=== PATIENT | female | born 1945 | race African-American/Black ===

== ENCOUNTER → 2017-04-18 | Outpatient (CLI) | payer MEDICARE, OTHER ==
[2017-04-18 11:34] LABS: ABSOLUTE EOSINOPHILS # (AUTO) 0.1 10^3/uL (0.0-0.6); ABSOLUTE LYMPHOCYTES (AUTO) 1.3 10^3/uL (0.5-4.7); ABSOLUTE MONOCYTES (AUTO) 0.3 10^3/uL (0.1-1.4); ABSOLUTE NEUT (AUTO) 2.9 10^3/uL (1.7-8.2); BASOPHILS % (AUTO) 0.7 % (0-2); EOSINOPHILS % (AUTO) 1.2 % (0-6); HEMATOCRIT 34.7 % (36.0-47.0); HEMOGLOBIN 11.7 g/dL (12.0-15.5); HGB HCT DIFFERENCE 0.4; LYMPHOCYTES % (AUTO) 28.4 % (13-45); MEAN CORPUSCULAR HEMOGLOBIN 29.8 pg (27.0-33.4); MEAN CORPUSCULAR HGB CONC 33.6 g/dL (32.0-36.0); MEAN CORPUSCULAR VOLUME 89 fl (80-97); RED BLOOD COUNT 3.92 10^6/uL (3.72-5.28); RED CELL DISTRIBUTION WIDTH 14.8 % (11.5-14.0); SEGMENTED NEUTROPHILS % (AUTO) 62.7 % (42-78); WHITE BLOOD COUNT 4.7 10^3/uL (4.0-10.5)
[2017-04-18 12:00] LABS: ALANINE AMINOTRANSFERASE 33 U/L (9-52); ALBUMIN 3.6 g/dL (3.5-5.0); ALKALINE PHOSPHATASE 97 U/L (38-126); ANION GAP 11 (5-19); ASPARTATE AMINO TRANSFERASE 29 U/L (14-36); BILIRUBIN,DIRECT 0.2 mg/dL (0.0-0.4); BILIRUBIN,TOTAL 0.5 mg/dL (0.2-1.3); BLOOD UREA NITROGEN 22 mg/dL (7-20); CALCIUM 8.4 mg/dL (8.4-10.2); CARBON DIOXIDE 31 mmol/L (22-30); CHLORIDE 103 mmol/L (98-107); CREATININE RESULT 0.74 mg/dL (0.52-1.25); GLUCOSE 79 mg/dL (75-110); POTASSIUM 3.6 mmol/L (3.6-5.0); SODIUM 145.3 mmol/L (137-145); TOTAL PROTEIN 6.3 g/dL (6.3-8.2)
[2017-04-19 10:20] LABS: HSV-II IGG AB >23.60 index (0.00-0.90); VARICELLA ZOSTER IGG AB 1613 index (Immune >165)
[2017-04-19 14:57] LABS: ANGIOTENSIN-CONVERTING ENZYME 35 U/L (14-82)
[2017-04-20 08:18] LABS: HSV I AND II IGM AB <0.91 Ratio (0.00-0.90)
[2017-04-21 18:36] LABS: QUANTIFERON TB ANTIGEN VALUE 0.16 IU/mL (.); QUANTIFERON TB NIL VALUE 0.22 IU/mL (.)
== END ==
LOC: OD 09:59
PROVIDERS: ATTEND Ophthalmology
DX: H35.352 Cystoid macular degeneration, left eye (principal)
CPT/HCPCS: 36415; 80048; 80076; 82164; 85025; 86038; 86430; 86480; 86592; 86695; 86696; 86787

== ENCOUNTER → 2018-01-28 | Outpatient (CLI) | payer MEDICARE, OTHER ==
[2018-01-28 13:04] LABS: ABSOLUTE LYMPHOCYTES (AUTO) 1.2 10^3/uL (0.5-4.7); ABSOLUTE MONOCYTES (AUTO) 0.4 10^3/uL (0.1-1.4); ABSOLUTE NEUT (AUTO) 3.2 10^3/uL (1.7-8.2); BASOPHILS % (AUTO) 0.8 % (0-2); EOSINOPHILS % (AUTO) 0.9 % (0-6); HEMATOCRIT 35.7 % (36.0-47.0); LYMPHOCYTES % (AUTO) 24.3 % (13-45); MEAN CORPUSCULAR HEMOGLOBIN 30.5 pg (27.0-33.4); MEAN CORPUSCULAR HGB CONC 33.7 g/dL (32.0-36.0); MEAN CORPUSCULAR VOLUME 91 fl (80-97); MONOCYTES % (AUTO) 7.8 % (3-13); PLATELET COUNT 183 10^3/uL (150-450); RED BLOOD COUNT 3.94 10^6/uL (3.72-5.28); RED CELL DISTRIBUTION WIDTH 14.8 % (11.5-14.0); SEGMENTED NEUTROPHILS % (AUTO) 66.2 % (42-78); TOTAL CELLS COUNTED % (AUTO) 100 %; WHITE BLOOD COUNT 4.9 10^3/uL (4.0-10.5)
[2018-01-28 13:37] LABS: ALANINE AMINOTRANSFERASE 21 U/L (9-52); ALBUMIN 3.8 g/dL (3.5-5.0); ALKALINE PHOSPHATASE 89 U/L (38-126); ASPARTATE AMINO TRANSFERASE 24 U/L (14-36); BILIRUBIN,DIRECT 0.3 mg/dL (0.0-0.4); BILIRUBIN,TOTAL 0.5 mg/dL (0.2-1.3)
== END ==
LOC: OD 12:15
PROVIDERS: ATTEND Ophthalmology
DX: H30.93 Unspecified chorioretinal inflammation, bilateral (principal)
CPT/HCPCS: 36415; 80076; 85025

== ENCOUNTER → 2018-04-16 | Outpatient (CLI) | payer MEDICARE, OTHER ==
[2018-04-16 15:40] LABS: ABSOLUTE EOSINOPHILS # (AUTO) 0.1 10^3/uL (0.0-0.6); ABSOLUTE LYMPHOCYTES (AUTO) 1.4 10^3/uL (0.5-4.7); ABSOLUTE MONOCYTES (AUTO) 0.3 10^3/uL (0.1-1.4); ABSOLUTE NEUT (AUTO) 2.4 10^3/uL (1.7-8.2); BASOPHILS % (AUTO) 0.6 % (0-2); EOSINOPHILS % (AUTO) 1.8 % (0-6); HEMATOCRIT 33.1 % (36.0-47.0); HEMOGLOBIN 11.2 g/dL (12.0-15.5); MEAN CORPUSCULAR HGB CONC 33.7 g/dL (32.0-36.0); MEAN CORPUSCULAR VOLUME 92 fl (80-97); MONOCYTES % (AUTO) 7.9 % (3-13); PLATELET COUNT 169 10^3/uL (150-450); RED CELL DISTRIBUTION WIDTH 15.5 % (11.5-14.0); SEGMENTED NEUTROPHILS % (AUTO) 56.7 % (42-78); TOTAL CELLS COUNTED % (AUTO) 100 %; WHITE BLOOD COUNT 4.2 10^3/uL (4.0-10.5)
[2018-04-16 16:07] LABS: ALANINE AMINOTRANSFERASE 14 U/L (9-52); ALBUMIN 3.8 g/dL (3.5-5.0); ALKALINE PHOSPHATASE 100 U/L (38-126); ASPARTATE AMINO TRANSFERASE 22 U/L (14-36); BILIRUBIN,DIRECT 0.2 mg/dL (0.0-0.4); BILIRUBIN,TOTAL 0.3 mg/dL (0.2-1.3); TOTAL PROTEIN 6.5 g/dL (6.3-8.2)
== END ==
LOC: OD 14:36
PROVIDERS: ATTEND Ophthalmology
DX: H30.93 Unspecified chorioretinal inflammation, bilateral (principal); H35.353 Cystoid macular degeneration, bilateral; H35.033 Hypertensive retinopathy, bilateral
CPT/HCPCS: 36415; 80076; 85025

== ENCOUNTER → 2018-05-10 | Outpatient (CLI) | payer MEDICARE, OTHER ==
[2018-05-10 14:27] LABS: ABSOLUTE EOSINOPHILS # (AUTO) 0.1 10^3/uL (0.0-0.6); ABSOLUTE LYMPHOCYTES (AUTO) 1.4 10^3/uL (0.5-4.7); ABSOLUTE MONOCYTES (AUTO) 0.3 10^3/uL (0.1-1.4); ABSOLUTE NEUT (AUTO) 2.7 10^3/uL (1.7-8.2); BASOPHILS % (AUTO) 0.6 % (0-2); EOSINOPHILS % (AUTO) 1.2 % (0-6); HEMATOCRIT 33.3 % (36.0-47.0); HEMOGLOBIN 11.5 g/dL (12.0-15.5); LYMPHOCYTES % (AUTO) 31.5 % (13-45); MEAN CORPUSCULAR HEMOGLOBIN 31.5 pg (27.0-33.4); MEAN CORPUSCULAR HGB CONC 34.5 g/dL (32.0-36.0); MEAN CORPUSCULAR VOLUME 91 fl (80-97); PLATELET COUNT 181 10^3/uL (150-450); RED BLOOD COUNT 3.65 10^6/uL (3.72-5.28); RED CELL DISTRIBUTION WIDTH 15.9 % (11.5-14.0); SEGMENTED NEUTROPHILS % (AUTO) 60.7 % (42-78); TOTAL CELLS COUNTED % (AUTO) 100 %; WHITE BLOOD COUNT 4.5 10^3/uL (4.0-10.5)
[2018-05-10 14:45] LABS: ALANINE AMINOTRANSFERASE 21 U/L (9-52); ALBUMIN 3.7 g/dL (3.5-5.0); ALKALINE PHOSPHATASE 96 U/L (38-126); ASPARTATE AMINO TRANSFERASE 23 U/L (14-36); BILIRUBIN,DIRECT 0.3 mg/dL (0.0-0.4); BILIRUBIN,TOTAL 0.6 mg/dL (0.2-1.3); TOTAL PROTEIN 6.6 g/dL (6.3-8.2)
== END ==
LOC: OD 13:37
PROVIDERS: ATTEND Ophthalmology
DX: H30.93 Unspecified chorioretinal inflammation, bilateral (principal); H35.353 Cystoid macular degeneration, bilateral; H18.232 Secondary corneal edema, left eye; H35.033 Hypertensive retinopathy, bilateral; H04.123 Dry eye syndrome of bilateral lacrimal glands; I10 Essential (primary) hypertension
CPT/HCPCS: 36415; 80076; 85025

== ENCOUNTER 2018-05-21 19:37 | Observation (INO) | payer MEDICARE, OTHER ==
--- NOTE | 2018-05-21 19:57 | ER Document Report ---
ED Medical Screen (RME) - General Chief Complaint: Cough Stated Complaint: COUGH/DIZZINESS Time Seen by Provider: 05/21/18 19:51 Mode of Arrival: Ambulatory Information source: Patient Notes: 73-year-old female with coronary artery disease, hypertension, asthma presents from her primary care physician's office after she reports the provider was concerned with the EKG that was obtained there. Patient went because of a persistent cough and dizziness. She does state that she has had constant chest pressure for a few days. I have greeted and performed a rapid initial assessment of this patient. A comprehensive ED assessment and evaluation of the patient, analysis of test results and completion of medical decision making process we will be contacted by additional ED providers. PHYSICAL EXAMINATION: Vital signs reviewed-afebrile hypotension GENERAL: Persistent cough, ill-appearing but nontoxic LUNGS: No respiratory distress Musculoskeletal: Normal range of motion NEUROLOGICAL: Normal speech, normal gait. PSYCH: Normal mood, normal affect. SKIN: Warm, Dry, normal turgor, no rashes or lesions noted. TRAVEL OUTSIDE OF THE [place] IN LAST 30 DAYS: No - HPI Onset: Other Onset/Duration: Intermittent Quality of pain: Pressure Severity: Mild Associated Symptoms: Chest pain, Cough (productive), Fever. denies: Shortness of breath Exacerbated by: Denies Relieved by: Denies Similar symptoms previously: Yes Recently seen / treated by doctor: Yes - Today was sent here by PCP - Related Data Smoking: Non-smoker Frequency of alcohol use: None Drug Abuse: None Allergies/Adverse Reactions: ampicillin [Ampicillin] Allergy (Severe, Verified 09/07/11 12:56) Facial swelling muscle relaxer Adverse Reaction (Uncoded 04/07/15 20:44) Past Medical History - Past Medical History Cardiac Medical History: Reports: Hx Coronary Artery Disease, Hx Hypertension - LISINOPRIL AND LOPRESSOR Denies: Hx Heart Attack - STENTS [id number], [place] Pulmonary Medical History: Reports: Hx Asthma - OCCUPATIONAL ASTHMA, INDUCED BY CHEMICALS PER PT Neurological Medical History: Denies: Hx Cerebrovascular Accident, Hx Seizures Endocrine Medical History: Denies: Hx Diabetes Mellitus Type 1, Hx Diabetes Mellitus Type 2 GI Medical History: Denies: Hx Hepatitis, Hx Hiatal Hernia, Hx Ulcer Infectious Medical History: Denies: Hx Hepatitis Past Surgical History: Reports: Hx Cardiac Surgery - stent x 2, thyroidectomy, Hx Thyroid Surgery. Denies: Hx Hysterectomy, Hx Mastectomy, Hx Open Heart Surgery, Hx Pacemaker - Immunizations Hx Diphtheria, Pertussis, Tetanus Vaccination: Yes Doctor's Discharge - Discharge Referrals: FAZAL BROWN MD [Primary Care Provider] - Follow up as needed
[2018-05-21] MEDS ORDERED: ASPIRIN 81 MG TABLET, CHEWABLE PO ONE (19:58)
--- NOTE | 2018-05-21 20:28 | RADIOLOGY REPORT (SQ) ---
EXAM DESCRIPTION: CHEST 2 VIEWS COMPLETED DATE/TIME: 05/21/2018 8:16 pm REASON FOR STUDY: Cough, chest pain COMPARISON: None. EXAM PARAMETERS: NUMBER OF VIEWS: two views TECHNIQUE: Digital Frontal and Lateral radiographic views of the chest acquired. RADIATION DOSE: NA LIMITATIONS: none FINDINGS: LUNGS AND PLEURA: No opacities, masses or pneumothorax. No pleural effusion. MEDIASTINUM AND HILAR STRUCTURES: No masses or contour abnormalities. HEART AND VASCULAR STRUCTURES: Heart normal size. No evidence for failure. BONES: No acute findings. HARDWARE: None in the chest. OTHER: No other significant finding. IMPRESSION: NO ACUTE RADIOGRAPHIC FINDING IN THE CHEST. TECHNICAL DOCUMENTATION: JOB ID: [id number] [employer]- All Rights Reserved Reading location - IP/workstation name: [email or web address]
[2018-05-21 20:37] LABS: ABSOLUTE LYMPHOCYTES (AUTO) 1.5 10^3/uL (0.5-4.7); ABSOLUTE MONOCYTES (AUTO) 0.4 10^3/uL (0.1-1.4); ABSOLUTE NEUT (AUTO) 1.5 10^3/uL (1.7-8.2); BASOPHILS % (AUTO) 0.6 % (0-2); EOSINOPHILS % (AUTO) 0.2 % (0-6); HEMATOCRIT 35.6 % (36.0-47.0); LYMPHOCYTES % (AUTO) 44.8 % (13-45); MEAN CORPUSCULAR HGB CONC 33.9 g/dL (32.0-36.0); MEAN CORPUSCULAR VOLUME 92 fl (80-97); MONOCYTES % (AUTO) 11.1 % (3-13); PLATELET COUNT 144 10^3/uL (150-450); RED BLOOD COUNT 3.89 10^6/uL (3.72-5.28); RED CELL DISTRIBUTION WIDTH 15.8 % (11.5-14.0); SEGMENTED NEUTROPHILS % (AUTO) 43.3 % (42-78); TOTAL CELLS COUNTED % (AUTO) 100 %; WHITE BLOOD COUNT 3.4 10^3/uL (4.0-10.5)
[2018-05-21 20:55] LABS: ALANINE AMINOTRANSFERASE 27 U/L (9-52); ALBUMIN 3.8 g/dL (3.5-5.0); ALKALINE PHOSPHATASE 91 U/L (38-126); ANION GAP 9 (5-19); ASPARTATE AMINO TRANSFERASE 45 U/L (14-36); BILIRUBIN,DIRECT 0.3 mg/dL (0.0-0.4); BILIRUBIN,TOTAL 0.4 mg/dL (0.2-1.3); BLOOD UREA NITROGEN 17 mg/dL (7-20); CALCIUM 8.7 mg/dL (8.4-10.2); CARBON DIOXIDE 31 mmol/L (22-30); CHLORIDE 99 mmol/L (98-107); CREATINE KINASE 240 U/L (30-135); GLUCOSE 96 mg/dL (75-110); POTASSIUM 3.1 mmol/L (3.6-5.0); SODIUM 138.6 mmol/L (137-145)
[2018-05-21] MEDS ORDERED: POTASSIUM CHLORIDE 10 MEQ CAPSULE.ER PO ONE (22:21)
[2018-05-21] MEDS ORDERED: NITROGLYCERIN 2% OINTMENT 1 GM PACKET TP ONE (22:23)
--- NOTE | 2018-05-21 22:23 | ER Document Report ---
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 TRAVEL OUTSIDE OF THE [place] IN LAST 30 DAYS: No - HPI Onset: Last week Onset/Duration: Gradual Quality of pain: No pain Severity: None Pain Level: Denies Associated symptoms: Nonproductive cough, Shortness of breath Exacerbated by: Movement Relieved by: Denies Similar symptoms previously: No Recently seen / treated by doctor: No - Related Data Allergies/Adverse Reactions: ampicillin [Ampicillin] Allergy (Severe, Verified 09/07/11 12:56) Facial swelling muscle relaxer Adverse Reaction (Uncoded 04/07/15 20:44) Past Medical History - General Information source: Patient - Social History Smoking Status: Never Smoker Cigarette use (# per day): No Chew tobacco use (# tins/day): No Frequency of alcohol use: None Drug Abuse: None Lives with: Family Family History: Reviewed & Not Pertinent Patient has suicidal ideation: No Patient has homicidal ideation: No - Past Medical History Cardiac Medical History: Reports: Hx Coronary Artery Disease, Hx Hypertension - LISINOPRIL AND LOPRESSOR Denies: Hx Heart Attack - STENTS [id number], [place] Pulmonary Medical History: Reports: Hx Asthma - OCCUPATIONAL ASTHMA, INDUCED BY CHEMICALS PER PT Neurological Medical History: Denies: Hx Cerebrovascular Accident, Hx Seizures Endocrine Medical History: Denies: Hx Diabetes Mellitus Type 1, Hx Diabetes Mellitus Type 2 Renal/ Medical History: Denies: Hx Peritoneal Dialysis GI Medical History: Denies: Hx Hepatitis, Hx Hiatal Hernia, Hx Ulcer Musculoskeletal Medical History: Reports None Infectious Medical History: Denies: Hx Hepatitis Past Surgical History: Reports: Hx Cardiac Surgery - stent x 2, thyroidectomy, Hx Thyroid Surgery. Denies: Hx Hysterectomy, Hx Mastectomy, Hx Open Heart Surgery, Hx Pacemaker - Immunizations Hx Diphtheria, Pertussis, Tetanus Vaccination: Yes Hx Pneumococcal Vaccination: 06/04/06 Review of Systems - Review of Systems Constitutional: Chills. denies: Fever EENT: Other - Patient has chronic inflammation of the left eye Cardiovascular: Dyspnea. denies: Chest pain, Palpitations Respiratory: Cough, Short of breath Gastrointestinal: No symptoms reported. denies: Abdominal pain, Nausea, Vomiting Genitourinary: No symptoms reported Female Genitourinary: No symptoms reported Musculoskeletal: No symptoms reported Skin: No symptoms reported Hematologic/Lymphatic: No symptoms reported Neurological/Psychological: No symptoms reported Physical Exam - Vital signs Vitals: Temp Pulse BP Pulse Ox 98.3 F 55 L 192/72 H 100 05/21/18 19:45 05/21/18 19:45 05/21/18 19:45 05/21/18 19:45 Notes: Physical exam: GENERAL: She is alert oriented x3, no acute distress HEAD: Atraumatic, normocephalic. EYES: Pupils equal round and reactive to light, extraocular movements intact, sclera anicteric, conjunctiva are normal. ENT: TMs normal, nares patent, oropharynx clear without exudates. Moist mucous membranes. NECK: Normal range of motion, supple without obvious mass or JVD. LUNGS: Breath sounds clear to auscultation bilaterally and equal. No wheezes rales or rhonchi. HEART: Regular rate and rhythm without murmurs, rubs or gallops. ABDOMEN: Soft, normoactive bowel sounds. No tenderness to palpation. No guarding, no rebound. No masses appreciated. EXTREMITIES: Normal range of motion, no pitting or edema. No clubbing or cyanosis. NEUROLOGICAL: Cranial nerves II through XII grossly intact. Normal speech, moving all extremities. PSYCH: Normal mood, normal affect. SKIN: Warm, Dry, normal turgor, no rashes or lesions noted. Course - Vital Signs Vital signs: Temp Pulse Resp BP Pulse Ox 98.3 F 55 L 10 L 161/74 H 100 05/21/18 19:45 05/21/18 19:45 05/21/18 23:01 05/21/18 23:01 05/21/18 23:01 - Laboratory Result Diagrams: 05/21/18 20:21 05/21/18 20:21 Laboratory results interpreted by me: 05/21/18 05/21/18 20:21 20:21 WBC 3.4 L Hct 35.6 L RDW 15.8 H Plt Count 144 L Absolute Neutrophils 1.5 L Potassium 3.1 L Carbon Dioxide 31 H Est GFR (Non-Af Amer) 57 L AST 45 H Creatine Kinase 240 H - Diagnostic Test Radiology reviewed: Image reviewed, Reports reviewed - Chest x-ray shows no obvious infiltrate - EKG Interpretation by Me Rate: Bradycardia - KG shows sinus bradycardia with a ventricular rate of 50, no acute ST-T wave changes Discharge - Discharge Clinical Impression: Dyspnea on exertion Condition: Stable Disposition: ADMITTED OBSERVATION Admitting Provider: Hospitalist - dr richard Unit Admitted: Telemetry Referrals: FAZAL BROWN MD [ASSOCIATE] - Follow up as needed
[2018-05-21 22:54] LABS: TROPONIN I 0.025 ng/mL
[2018-05-21 23:09] LABS: A TYPE INFLUENZA AG NEGATIVE (NEGATIVE); B INFLUENZA AG NEGATIVE (NEGATIVE)
--- NOTE | 2018-05-22 02:37 | RADIOLOGY REPORT (SQ) ---
CLINICAL HISTORY: dyspnea COMPARISON: None. TECHNIQUE: CT CHEST ANGIOGRAPHY WITHOUT THEN WITH IV CONTRAST, CT ABDOMEN PELVIS WITH IV CONTRAST on 05/22/2018 1:40 AM HEALTH CARE SPECIALIST. MIPS reconstructions were generated. This exam was performed according to our departmental dose-optimization program, which includes automated exposure control, adjustment of the mA and/or kV according to patient size and/or use of iterative reconstruction technique. FINDINGS: Vascular: Thoracic aorta is normal in course and caliber without aneurysm or dissection. Abdominal aorta is normal in course and caliber without aneurysm. Pelvic arteries are patent without aneurysm or occlusion. Chest: The heart is normal in size. There is no pericardial effusion. Intrathoracic lymph nodes are not enlarged. There is no pleural effusion, pleural thickening or pneumothorax. Central airways are patent. Lungs are clear with no consolidation, mass or interstitial lung disease. Abdomen: The liver is normal in appearance. There is no biliary dilatation. Gallbladder is normal in appearance. There is a small hiatal hernia. The pancreas and spleen are normal in appearance. The adrenal glands and kidneys are unremarkable. There is no free air. There is no retroperitoneal adenopathy. Pelvis: There is no bowel obstruction. Urinary bladder is unremarkable. There is small amount of free pelvic fluid. Uterus is normal in size. Appendix is normal. Skeleton: There are no acute osseous findings. No suspicious bony lesions. IMPRESSION: No aortic dissection or aneurysm. No pulmonary embolus. No pneumonia. No acute inflammatory process.
[2018-05-22] MEDS ORDERED: IPRATROPIUM/ALBUTEROL 0.5-2.5 MG/3 ML AMPUL NEB PRN (02:50)
[2018-05-22] MEDS ORDERED: MAG HYDROX/AL HYDROX/SIMETH SUSP 30 ML UDCUP PO PRN (02:50)
[2018-05-22] MEDS ORDERED: ACETAMINOPHEN 325 MG TABLET PO PRN (02:50)
[2018-05-22] MEDS ORDERED: CHLORPHENIRAMINE MALEATE 4 MG TABLET PO ONE ×2 (03:56→08:30)
[2018-05-22] MEDS: LEVOFLOXACIN 750 MG/D5W RTU 750 MG/150 ML RTUPB IV SCH (06:55)
[2018-05-22] MEDS: HEPARIN SOD (PORCINE) 5,000 UNIT/ML 1 ML SYRINGE SUBCUT SCH ×3 (07:07→22:24)
--- NOTE | 2018-05-22 07:14 | PDOC H&P ---
History of Present Illness Admission Date/PCP: 05/22/18 02:52 IAN BROUSSARD Patient complains of: Shortness of breath and cough History of Present Illness: SIMA CHACKO is a 73 year old female with a past medical history of coronary artery disease, hypertension and dyslipidemia. She presents with 4 days of shortness of breath and productive cough, rhinorrhea and postnasal drip. In the emergency room she has an unremarkable workup with exception exceptional shortness of breath and cough. She is referred to the hospitalist for observation. Patient denies recent antibiotic use, known allergic exposures or ill contacts. Patient otherwise is lying flat and appears well. Past Medical History Cardiac Medical History: Reports: Coronary Artery Disease, Hypertension - LISINOPRIL AND LOPRESSOR Denies: Myocardial Infarction - STENTS [id number], [place] Pulmonary Medical History: Reports: Asthma - OCCUPATIONAL ASTHMA, INDUCED BY CHEMICALS PER PT Neurological Medical History: Denies: Seizures Endocrine Medical History: Denies: Diabetes Mellitus Type 1, Diabetes Mellitus Type 2 GI Medical History: Denies: Hepatitis, Hiatal Hernia Musculoskeltal Medical History: Reports: None Hematology: Denies: Anemia, Sickle Cell Disease Past Surgical History Past Surgical History: Denies: Amputation, Hysterectomy, Mastectomy, Pacemaker Social History Information Source: Patient Lives with: Family Smoking Status: Never Smoker Frequency of Alcohol Use: Rare Drugs: None - Advance Directive Resuscitation Status: Full Code Family History Family History: DM Parental Family History Reviewed: Yes Children Family History Reviewed: Yes Sibling(s) Family History Reviewed.: Yes Medication/Allergy Home Medications: Ezetimibe/Simvastatin [Vytorin 10-80 mg Tablet] 1 tab PO DAILY 09/07/11 Multivitamin [Vitamin A Day] 1 each PO DAILY 09/07/11 Aspirin [Aspirin 325 mg Tablet] 325 mg PO DAILY 10/12/12 Cyclosporine 0.05% Oph Emulsio [Restasis 0.05% Oph Emulsion Pf 0.4 ml] 1 drop OU BID 04/07/15 Levothyroxine Sodium [Synthroid 0.075 mg Tablet] 0.075 mg PO DAILY 04/07/15 Metoprolol Succinate [Toprol Xl 25 mg Tab.sr] 25 mg PO QPM 04/07/15 Olopatadine HCl [Pataday] 1 drop OU BID 04/07/15 Isosorbide Mononitrate [Imdur 60 mg Tablet.er] 60 mg PO DAILY #30 tab.sr.24h 04/09/15 Losartan Potassium [Cozaar 25 mg Tablet] 25 mg PO DAILY #30 tablet 04/09/15 Allergies/Adverse Reactions: ampicillin [Ampicillin] Allergy (Severe, Verified 09/07/11 12:56) Facial swelling muscle relaxer Adverse Reaction (Uncoded 04/07/15 20:44) Review of Systems Constitutional: ABSENT: chills, fever(s), headache(s), weight gain, weight loss Eyes: ABSENT: visual disturbances Ears: ABSENT: hearing changes Cardiovascular: ABSENT: chest pain, dyspnea on exertion, edema, orthropnea, palpitations Respiratory: ABSENT: cough, hemoptysis Gastrointestinal: ABSENT: abdominal pain, constipation, diarrhea, hematemesis, hematochezia, nausea, vomiting Genitourinary: ABSENT: dysuria, hematuria Musculoskeletal: ABSENT: joint swelling Integumentary: ABSENT: rash, wounds Neurological: ABSENT: abnormal gait, abnormal speech, confusion, dizziness, focal weakness, syncope Psychiatric: ABSENT: anxiety, depression, homidical ideation, suicidal ideation Endocrine: ABSENT: cold intolerance, heat intolerance, polydipsia, polyuria Hematologic/Lymphatic: ABSENT: easy bleeding, easy bruising Physical Exam Vital Signs: Temp Pulse Resp BP Pulse Ox 98.3 F 55 L 10 L 161/74 H 100 05/21/18 19:45 05/21/18 19:45 05/21/18 23:01 05/21/18 23:01 05/21/18 23:01 Intake & Output 05/20/18 05/21/18 05/22/18 11:59 11:59 11:59 Weight 75.75 kg General appearance: PRESENT: cooperative, mild distress. ABSENT: disheveled, morbidly obese, severe distress Head exam: PRESENT: atraumatic, normocephalic Eye exam: PRESENT: conjunctiva pink, EOMI, PERRLA. ABSENT: scleral icterus Ear exam: PRESENT: normal external ear exam Mouth exam: PRESENT: moist, tongue midline Neck exam: ABSENT: carotid bruit, JVD, lymphadenopathy, thyromegaly Respiratory exam: PRESENT: crackles, rhonchi - Upper airway. ABSENT: accessory muscle use, chest wall tenderness, clear to auscultation florentino, retraction Cardiovascular exam: PRESENT: RRR. ABSENT: diastolic murmur, rubs, systolic murmur Pulses: PRESENT: normal dorsalis pedis pul Vascular exam: PRESENT: normal capillary refill GI/Abdominal exam: PRESENT: normal bowel sounds, soft. ABSENT: distended, guarding, mass, organolmegaly, rebound, tenderness Rectal exam: PRESENT: deferred Extremities exam: PRESENT: full ROM. ABSENT: calf tenderness, clubbing, pedal edema Neurological exam: PRESENT: alert, awake, oriented to person, oriented to place, oriented to time, oriented to situation, CN II-XII grossly intact. ABSENT: motor sensory deficit Psychiatric exam: PRESENT: appropriate affect, normal mood. ABSENT: homicidal ideation, suicidal ideation Skin exam: PRESENT: dry, intact, warm. ABSENT: cyanosis, rash Results Laboratory Results: 05/21/18 20:21 05/21/18 20:21 05/21/18 05/21/18 05/21/18 20:21 20:21 20:21 WBC 3.4 L RBC 3.89 Hgb 12.0 Hct 35.6 L MCV 92 MCH 31.0 MCHC 33.9 RDW 15.8 H Plt Count 144 L Seg Neutrophils % 43.3 Lymphocytes % 44.8 Monocytes % 11.1 Eosinophils % 0.2 Basophils % 0.6 Absolute Neutrophils 1.5 L Absolute Lymphocytes 1.5 Absolute Monocytes 0.4 Absolute Eosinophils 0.0 Absolute Basophils 0.0 Sodium 138.6 Potassium 3.1 L Chloride 99 Carbon Dioxide 31 H Anion Gap 9 BUN 17 Creatinine 0.96 Est GFR ( Amer) > 60 Est GFR (Non-Af Amer) 57 L Glucose 96 Calcium 8.7 Magnesium 1.8 Total Bilirubin 0.4 AST 45 H ALT 27 Alkaline Phosphatase 91 Total Protein 7.0 Albumin 3.8 05/21/18 20:21 WBC RBC Hgb Hct MCV MCH MCHC RDW Plt Count Seg Neutrophils % Lymphocytes % Monocytes % Eosinophils % Basophils % Absolute Neutrophils Absolute Lymphocytes Absolute Monocytes Absolute Eosinophils Absolute Basophils Sodium Potassium Chloride Carbon Dioxide Anion Gap BUN Creatinine Est GFR ( Amer) Est GFR (Non-Af Amer) Glucose Calcium Magnesium Cancelled Total Bilirubin AST ALT Alkaline Phosphatase Total Protein Albumin 05/21/18 05/21/18 05/21/18 20:21 20:21 20:21 Creatine Kinase 240 H CK-MB (CK-2) 0.96 Troponin I 0.025 NT-Pro-B Natriuret Pep 251 05/22/18 02:37 Creatine Kinase CK-MB (CK-2) Troponin I 0.035 NT-Pro-B Natriuret Pep Impressions: Chest X-Ray 05/21/18 19:58 IMPRESSION: NO ACUTE RADIOGRAPHIC FINDING IN THE CHEST. Chest/Abdomen CTA 05/22/18 01:40 IMPRESSION: No aortic dissection or aneurysm. No pulmonary embolus. No pneumonia. No acute inflammatory process. Abdomen/Pelvis CT 05/22/18 01:45 IMPRESSION: No aortic dissection or aneurysm. No pulmonary embolus. No pneumonia. No acute inflammatory process. Assessment & Plan - Diagnosis (1) Maxillary sinusitis, acute Is this a current diagnosis for this admission?: Yes Plan: Chlorpheniramine, Flonase, Levaquin. (2) Acute bronchitis Is this a current diagnosis for this admission?: Yes Plan: As above with flutter valve, consider steroids (3) Dyspnea on exertion Is this a current diagnosis for this admission?: Yes Plan: Secondary to #1 and 2. Supplemental oxygen. - Time Time Spent: 30 to 50 Minutes
--- NOTE | 2018-05-22 07:49 | EKG REPORT ---
SEVERITY:- NORMAL ECG - SINUS RHYTHM : Confirmed by: Royer Benz MD 22-May-2018 07:48:35
[2018-05-22 09:26] LABS: CREATINE KINASE MB 0.89 ng/mL (<4.55); TROPONIN I 0.029 ng/mL
[2018-05-22] MEDS: FLUTICASONE NASAL SPRAY 50 MCG/SPRY 120 SPRAY/16 GM NASL SCH ×2 (10:16→21:51)
[2018-05-22] MEDS: CHLORPHENIRAMINE MALEATE 4 MG TABLET PO SCH ×2 (13:14→18:13)
[2018-05-22 16:32] LABS: CREATINE KINASE MB 1.05 ng/mL (<4.55); TROPONIN I 0.014 ng/mL
[2018-05-22 21:02] LABS: CREATINE KINASE MB 1.2 ng/mL (<4.55); TROPONIN I 0.013 ng/mL
--- NOTE | 2018-05-22 23:33 | PDOC PROGRESS REPORT ---
Subjective Progress Note for:: 05/22/18 Subjective:: Still with a cough, head congestion and feeling poorly. Reason For Visit: SOB COUGH Physical Exam Vital Signs: Temp Pulse Resp BP Pulse Ox 98.8 F 68 16 144/70 H 100 05/22/18 20:00 05/22/18 20:00 05/22/18 20:00 05/22/18 15:29 05/22/18 20:00 Intake & Output 05/21/18 05/22/18 05/23/18 06:59 06:59 06:59 Intake Total 150 Balance 150 Weight 75.75 kg 75.8 kg General appearance: PRESENT: no acute distress, cooperative, well-developed, other - Still feels quite weak Head exam: PRESENT: normocephalic Eye exam: PRESENT: conjunctiva pink. ABSENT: scleral icterus Neck exam: ABSENT: carotid bruit, lymphadenopathy Respiratory exam: PRESENT: symmetrical, unlabored. ABSENT: clear to auscultation florentino, rales, rhonchi, tachypnea, wheezes Cardiovascular exam: PRESENT: RRR, +S1, +S2 GI/Abdominal exam: PRESENT: normal bowel sounds, soft. ABSENT: tenderness Musculoskeletal exam: PRESENT: normal inspection Neurological exam: PRESENT: alert, awake, oriented to person, oriented to time, oriented to situation, CN II-XII grossly intact Psychiatric exam: PRESENT: flat affect Results Laboratory Results: 05/21/18 20:21 05/21/18 20:21 05/21/18 05/21/18 05/22/18 20:21 20:21 04:02 Magnesium Cancelled 1.8 TSH 0.92 05/21/18 05/21/18 05/21/18 20:21 20:21 20:21 Creatine Kinase 240 H CK-MB (CK-2) 0.96 Troponin I 0.025 NT-Pro-B Natriuret Pep 251 05/22/18 05/22/18 05/22/18 02:37 08:27 08:27 Creatine Kinase 183 H CK-MB (CK-2) 0.89 Troponin I 0.035 0.029 NT-Pro-B Natriuret Pep 05/22/18 05/22/18 05/22/18 15:24 15:24 20:07 Creatine Kinase 163 H 173 H CK-MB (CK-2) 1.05 Troponin I 0.014 NT-Pro-B Natriuret Pep 05/22/18 20:07 Creatine Kinase CK-MB (CK-2) 1.20 Troponin I 0.013 NT-Pro-B Natriuret Pep Impressions: Chest X-Ray 05/21/18 19:58 IMPRESSION: NO ACUTE RADIOGRAPHIC FINDING IN THE CHEST. Chest/Abdomen CTA 05/22/18 01:40 IMPRESSION: No aortic dissection or aneurysm. No pulmonary embolus. No pneumonia. No acute inflammatory process. Abdomen/Pelvis CT 05/22/18 01:45 IMPRESSION: No aortic dissection or aneurysm. No pulmonary embolus. No pneumonia. No acute inflammatory process. Assessment & Plan - Diagnosis (1) Maxillary sinusitis, acute Qualifiers: Recurrence: non-recurrent Qualified Code(s): J01.00 - Acute maxillary sinusitis, unspecified Is this a current diagnosis for this admission?: Yes Plan: Continue antibiotic therapy. No specified organism as yet. She does take care of her grandchildren and so she could have acquired the infection from them. She does not feel that any 1 of them are acutely ill at this time. (2) Dyspnea on exertion Is this a current diagnosis for this admission?: Yes Plan: Slowly improving. Still feels somewhat short of breath. She is also having a cough. We will continue to monitor. (3) CAD (coronary artery disease) Qualifiers: Coronary Disease-Associated Artery/Lesion type: [place] artery [place] vs. transplanted heart: [place] heart Associated angina: without angina Qualified Code(s): I25.10 - Atherosclerotic heart disease of [place] coronary artery without angina pectoris Is this a current diagnosis for this admission?: Yes Plan: Her creatinine kinase enzymes are elevated with a negative MB fraction. Her first 2 troponins are negative. She has an additional troponin scheduled for later today. I expect this to be negative. (4) Hypothyroid Qualifiers: Hypothyroidism type: unspecified Qualified Code(s): E03.9 - Hypothyroidism, unspecified Is this a current diagnosis for this admission?: Yes Plan: Her TSH was within the normal range. Continue current levothyroxine dose. - Time Time Spent with patient: 15-24 minutes Anticipated discharge: Home Within: within 24 hours
[2018-05-23] MEDS: CHLORPHENIRAMINE MALEATE 4 MG TABLET PO SCH ×3 (00:24→11:42)
[2018-05-23 05:10] LABS: ABSOLUTE LYMPHOCYTES (AUTO) 1.5 10^3/uL (0.5-4.7); ABSOLUTE MONOCYTES (AUTO) 0.4 10^3/uL (0.1-1.4); ABSOLUTE NEUT (AUTO) 1.5 10^3/uL (1.7-8.2); BASOPHILS % (AUTO) 0.5 % (0-2); EOSINOPHILS % (AUTO) 0.7 % (0-6); HEMATOCRIT 30.7 % (36.0-47.0); HEMOGLOBIN 10.5 g/dL (12.0-15.5); LYMPHOCYTES % (AUTO) 43.8 % (13-45); MEAN CORPUSCULAR HEMOGLOBIN 31.1 pg (27.0-33.4); MEAN CORPUSCULAR HGB CONC 34.3 g/dL (32.0-36.0); MEAN CORPUSCULAR VOLUME 91 fl (80-97); PLATELET COUNT 103 10^3/uL (150-450); RED BLOOD COUNT 3.38 10^6/uL (3.72-5.28); RED CELL DISTRIBUTION WIDTH 15.3 % (11.5-14.0); TOTAL CELLS COUNTED % (AUTO) 100 %; WHITE BLOOD COUNT 3.3 10^3/uL (4.0-10.5)
[2018-05-23 05:24] LABS: ANION GAP 8 (5-19); BLOOD UREA NITROGEN 12 mg/dL (7-20); CALCIUM 8.4 mg/dL (8.4-10.2); CARBON DIOXIDE 28 mmol/L (22-30); CHLORIDE 104 mmol/L (98-107); CHOLESTEROL 180.84 mg/dL (0-200); GLUCOSE 93 mg/dL (75-110); POTASSIUM 3.5 mmol/L (3.6-5.0); SODIUM 140.1 mmol/L (137-145); TRIGLYCERIDES 70 mg/dL (<150)
[2018-05-23 05:34] LABS: DIRECT LDL 127 mg/dL (<100)
[2018-05-23] MEDS: HEPARIN SOD (PORCINE) 5,000 UNIT/ML 1 ML SYRINGE SUBCUT SCH (05:48)
[2018-05-23] MEDS: LEVOFLOXACIN 750 MG/D5W RTU 750 MG/150 ML RTUPB IV SCH (05:48)
[2018-05-23] MEDS: FLUTICASONE NASAL SPRAY 50 MCG/SPRY 120 SPRAY/16 GM NASL SCH (09:19)
--- NOTE | 2018-05-23 13:09 | PDOC DISCHARGE SUMMARY ---
General - Admit/Disc Date/PCP Admission Date/Primary Care Provider: 05/22/18 02:52 EDIE MCCORDIAN MUNGUIA Discharge Date: 05/23/18 - Discharge Diagnosis (1) Maxillary sinusitis, acute Is this a current diagnosis for this admission?: Yes Summary: Patient had acute maxillary sinusitis by x-ray. She is allergic to penicillin. She will be discharged on doxycycline 100 mg twice daily for 10 days. She will also have Flonase 1 spray in each nares twice daily as well as Chlor-Trimeton every 6 hours as needed for congestion. Follow-up with Dr. Del Valle after the holidays. (2) Dyspnea on exertion Is this a current diagnosis for this admission?: Yes Summary: The patient feels much better. She exhibits no shortness of breath. Oxygen saturation is 100% on room air. (3) CAD (coronary artery disease) Is this a current diagnosis for this admission?: Yes Summary: We will continue her current home medication regimen. She was exhibiting slight orthostasis but this is likely a cumulative effect of her infection. I encouraged her to drink more fluids. Initially she should change positions slowly as well. (4) Hypothyroid Is this a current diagnosis for this admission?: Yes Summary: Continue levothyroxine. - Additional Information Resuscitation Status: Full Code Discharge Diet: Cardiac Discharge Activity: Activity As Tolerated, Balance Activity w/Rest Prescriptions: Chlorpheniramine Maleate [Chlor-Trimeton 4 mg Tablet] 4 mg PO Q6 PRN 30 Days #90 tablet PRN Reason: Congestion Doxycycline Hyclate 100 mg PO BID 10 Days #20 capsule Fluticasone Propionate [Flonase Nasal Pollock 50 Mcg/Pollock 16 gm] 2 spray NASL Q12 30 Days #1 spray.pump Home Medications: Acyclovir [Acyclovir 400 mg Tablet] 800 mg PO BID 05/22/18 Aspirin [Aspirin 325 mg Tablet] 325 mg PO DAILY 05/22/18 Brimonidine Tartrate [Alphagan P] 1 drop OS BID 05/22/18 Fluoxetine HCl [Prozac] 10 mg PO DAILY 05/22/18 Levothyroxine Sodium [Synthroid 0.088 mg Tablet] 0.088 mg PO Q6AM 05/22/18 Methotrexate Sodium [Rheumatrex 2.5 mg Tablet] 10 mg PO WE@1000 05/22/18 Metoprolol Succinate [Toprol Xl 50 mg Tab.sr] 50 mg PO DAILY 05/22/18 Omeprazole 20 mg PO DAILY 05/22/18 Prednisolone Acetate [Pred Forte] 1 drop OS BID 05/22/18 Acetaminophen [Tylenol 325 mg Tablet] 650 mg PO Q4HP PRN tablet 05/23/18 Chlorpheniramine Maleate [Chlor-Trimeton 4 mg Tablet] 4 mg PO Q6 PRN 30 Days #90 tablet 05/23/18 Doxycycline Hyclate 100 mg PO BID 10 Days #20 capsule 05/23/18 Fluticasone Propionate [Flonase Nasal Pollock 50 Mcg/Pollock 16 gm] 2 spray NASL Q12 30 Days #1 spray.pump 05/23/18 History of Present Illness Patient complains of: Productive cough, postnasal drip shortness of breath with exertion History of Present Illness: SIMA CHACKO is a 73 year old female with a history of coronary artery disease, hyperlipidemia and hypothyroidism. She states that for several days prior to admission she was noticing fatigue with increasing shortness of breath with exertion. She had a cough with production of discolored sputum as well as a lot of postnasal drip. Part of the delay in presenting to any medical personnel was that she takes care of her grandchildren. Hospital Course Hospital Course: She had a relatively benign hospital course. She was on IV levofloxacin. Her symptoms slowly improved. She also received Flonase and Chlor-Trimeton. She feels much better today. She still gets slightly lightheaded when changing positions but I told her to increase fluids. I will discharge her on doxycycline (allergic to penicillin) 100 mg twice daily for 10 days. Physical Exam Vital Signs: Temp Pulse Resp BP Pulse Ox 98.3 F 72 14 112/54 L 100 05/23/18 08:43 05/23/18 08:43 05/23/18 08:43 05/23/18 08:43 05/23/18 08:43 Intake & Output 05/22/18 05/23/18 05/24/18 06:59 06:59 06:59 Intake Total 150 150 Balance 150 150 Weight 75.75 kg 76.5 kg General appearance: PRESENT: no acute distress, cooperative, well-developed Respiratory exam: PRESENT: clear to auscultation flroentino, symmetrical, unlabored. ABSENT: accessory muscle use, prolonged expiratory phas, rales, rhonchi, wheezes Cardiovascular exam: PRESENT: RRR, +S1, +S2 GI/Abdominal exam: PRESENT: normal bowel sounds, soft. ABSENT: tenderness Neurological exam: PRESENT: alert, awake, oriented to person, oriented to place, oriented to time, oriented to situation, CN II-XII grossly intact Psychiatric exam: PRESENT: appropriate affect, normal mood. ABSENT: agitated, anxious Focused psych exam: ABSENT: restlessness Skin exam: PRESENT: dry, normal color, warm Results Laboratory Results: 05/23/18 04:01 05/23/18 04:01 05/23/18 05/23/18 04:01 04:01 WBC 3.3 L RBC 3.38 L Hgb 10.5 L Hct 30.7 L MCV 91 MCH 31.1 MCHC 34.3 RDW 15.3 H Plt Count 103 L Seg Neutrophils % 44.0 Lymphocytes % 43.8 Monocytes % 11.0 Eosinophils % 0.7 Basophils % 0.5 Absolute Neutrophils 1.5 L Absolute Lymphocytes 1.5 Absolute Monocytes 0.4 Absolute Eosinophils 0.0 Absolute Basophils 0.0 Sodium 140.1 Potassium 3.5 L Chloride 104 Carbon Dioxide 28 Anion Gap 8 BUN 12 Creatinine 0.72 Est GFR ( Amer) > 60 Est GFR (Non-Af Amer) > 60 Glucose 93 Calcium 8.4 Triglycerides 70 Cholesterol 180.84 LDL Cholesterol Direct 127 H VLDL Cholesterol 14.0 HDL Cholesterol 28 L 05/21/18 05/21/18 05/21/18 20:21 20:21 20:21 Creatine Kinase 240 H CK-MB (CK-2) 0.96 Troponin I 0.025 NT-Pro-B Natriuret Pep 251 05/22/18 05/22/18 05/22/18 02:37 08:27 08:27 Creatine Kinase 183 H CK-MB (CK-2) 0.89 Troponin I 0.035 0.029 NT-Pro-B Natriuret Pep 05/22/18 05/22/18 05/22/18 15:24 15:24 20:07 Creatine Kinase 163 H 173 H CK-MB (CK-2) 1.05 Troponin I 0.014 NT-Pro-B Natriuret Pep 05/22/18 20:07 Creatine Kinase CK-MB (CK-2) 1.20 Troponin I 0.013 NT-Pro-B Natriuret Pep Impressions: Chest X-Ray 05/21/18 19:58 IMPRESSION: NO ACUTE RADIOGRAPHIC FINDING IN THE CHEST. Chest/Abdomen CTA 05/22/18 01:40 IMPRESSION: No aortic dissection or aneurysm. No pulmonary embolus. No pneumonia. No acute inflammatory process. Abdomen/Pelvis CT 05/22/18 01:45 IMPRESSION: No aortic dissection or aneurysm. No pulmonary embolus. No pneumonia. No acute inflammatory process. Qualifiers - * PATIENT BEING DISCHARGED WITH ANY OF THE FOLLOWING DIAGNOSIS: No Plan Discharge Plan: Complete antibiotics as ordered. Continue Flonase and Chlor-Trimeton for congestion. Follow-up with Dr. Campo after the holidays. Time Spent: Less than 30 Minutes
[2018-05-23 13:32] VITALS: BP 147/69
== END 2018-05-23 13:40 | disposition home or self-care (01) ==
LOC: ER 19:37 → EH 05-22 02:52 → 5 05-22 12:19
PROVIDERS: ADMIT Internal Medicine; ATTEND Internal Medicine
DX: J01.00 Acute maxillary sinusitis, unspecified (principal); R06.09 Other forms of dyspnea; I25.10 Atherosclerotic heart disease of native coronary artery without angina pectoris; E03.9 Hypothyroidism, unspecified; E78.5 Hyperlipidemia, unspecified; H30.92 Unspecified chorioretinal inflammation, left eye; R00.1 Bradycardia, unspecified; J45.909 Unspecified asthma, uncomplicated; R42 Dizziness and giddiness; R07.89 Other chest pain; R05 Cough; Z88.0 Allergy status to penicillin; Z79.899 Other long term (current) drug therapy; Z79.82 Long term (current) use of aspirin; Z95.5 Presence of coronary angioplasty implant and graft; Z98.890 Other specified postprocedural states; Z87.09 Personal history of other diseases of the respiratory system
CPT/HCPCS: 93005; 99285; 36415 ×3; 82553 ×2; 82550 ×2; 83735 ×2; 84443; 85025 ×2; 85652; 80048; 80053; 84484 ×2; 80061; 87804; 83880; 71046; 71275; 74177; 93010; 94667; A9270 ×6; J1956 ×2; G0378

== ENCOUNTER → 2018-07-29 | Outpatient (CLI) | payer MEDICARE, OTHER ==
[2018-07-29 10:36] LABS: ABSOLUTE EOSINOPHILS # (AUTO) 0.1 10^3/uL (0.0-0.6); ABSOLUTE LYMPHOCYTES (AUTO) 0.8 10^3/uL (0.5-4.7); ABSOLUTE MONOCYTES (AUTO) 0.3 10^3/uL (0.1-1.4); ABSOLUTE NEUT (AUTO) 2.6 10^3/uL (1.7-8.2); BASOPHILS % (AUTO) 0.9 % (0-2); EOSINOPHILS % (AUTO) 3.3 % (0-6); HEMOGLOBIN 10.6 g/dL (12.0-15.5); LYMPHOCYTES % (AUTO) 20.6 % (13-45); MEAN CORPUSCULAR HGB CONC 34.4 g/dL (32.0-36.0); MEAN CORPUSCULAR VOLUME 93 fl (80-97); MONOCYTES % (AUTO) 8.6 % (3-13); PLATELET COUNT 168 10^3/uL (150-450); RED BLOOD COUNT 3.33 10^6/uL (3.72-5.28); RED CELL DISTRIBUTION WIDTH 15.6 % (11.5-14.0); SEGMENTED NEUTROPHILS % (AUTO) 66.6 % (42-78); TOTAL CELLS COUNTED % (AUTO) 100 %; WHITE BLOOD COUNT 3.9 10^3/uL (4.0-10.5)
[2018-07-29 11:00] LABS: ALANINE AMINOTRANSFERASE 19 U/L (9-52); ALBUMIN 3.8 g/dL (3.5-5.0); ALKALINE PHOSPHATASE 98 U/L (38-126); ASPARTATE AMINO TRANSFERASE 20 U/L (14-36); BILIRUBIN,DIRECT 0.2 mg/dL (0.0-0.4); BILIRUBIN,TOTAL 0.6 mg/dL (0.2-1.3); TOTAL PROTEIN 6.6 g/dL (6.3-8.2)
== END ==
LOC: OD 09:48
PROVIDERS: ATTEND Ophthalmology
DX: H30.93 Unspecified chorioretinal inflammation, bilateral (principal)
CPT/HCPCS: 36415; 80076; 85025

== ENCOUNTER 2018-10-21 17:13 | Emergency (ER) | payer MEDICARE, OTHER ==
--- NOTE | 2018-10-21 17:40 | ER Document Report ---
ED Medical Screen (RME) - General Chief Complaint: Eye Pain Stated Complaint: EYE PAIN Time Seen by Provider: 10/21/18 17:37 Primary Care Provider: FAZAL BROWN MD [Primary Care Provider] - Follow up as needed Mode of Arrival: Medic Information source: Patient Notes: 73-year-old female presented to ED for complaint of severe eye pain to the left eye. She states she was in the shower and she spine which cataract shower she had severe pain. She thought maybe she got hair in her eye so she looked in her eye and does not see anything in her eyes. She states the pain is been severe so she used artificial tears. She was in the house with a grandchild who called 911 and she came to the emergency room. States the pain is still severe she does have red inflamed eye she is holding her eye at this time. No known injury I have greeted and performed a rapid initial assessment of this patient. A comprehensive ED assessment and evaluation of the patient, analysis of test results and completion of medical decision making process will be conducted by an additional ED providers. Dictation of this chart was performed using voice recognition software; therefore, there may be some unintended grammatical errors. TRAVEL OUTSIDE OF THE [place] IN LAST 30 DAYS: No - Related Data Allergies/Adverse Reactions: ampicillin [Ampicillin] Allergy (Severe, Verified 09/07/11 12:56) Facial swelling muscle relaxer Adverse Reaction (Uncoded 04/07/15 20:44) Past Medical History - Past Medical History Cardiac Medical History: Reports: Hx Coronary Artery Disease, Hx Hypertension - LISINOPRIL AND LOPRESSOR Denies: Hx Heart Attack - STENTS [id number], [place] Pulmonary Medical History: Reports: Hx Asthma - OCCUPATIONAL ASTHMA, INDUCED BY CHEMICALS PER PT Neurological Medical History: Denies: Hx Cerebrovascular Accident, Hx Seizures Endocrine Medical History: Denies: Hx Diabetes Mellitus Type 1, Hx Diabetes Mellitus Type 2 Renal/ Medical History: Denies: Hx Peritoneal Dialysis GI Medical History: Denies: Hx Hepatitis, Hx Hiatal Hernia, Hx Ulcer Infectious Medical History: Denies: Hx Hepatitis Past Surgical History: Reports: Hx Cardiac Surgery - stent x 2, thyroidectomy, Hx Thyroid Surgery. Denies: Hx Hysterectomy, Hx Mastectomy, Hx Open Heart Surge ry, Hx Pacemaker - Immunizations Hx Diphtheria, Pertussis, Tetanus Vaccination: Yes Physical Exam - Vital signs Vitals: Temp Pulse Resp BP Pulse Ox 98.4 F 74 16 165/84 H 100 10/21/18 17:30 10/21/18 17:30 10/21/18 17:30 10/21/18 17:30 10/21/18 17:30 Course - Vital Signs Vital signs: Temp Pulse Resp BP Pulse Ox 98.4 F 74 16 165/84 H 100 10/21/18 17:30 10/21/18 17:30 10/21/18 17:30 10/21/18 17:30 10/21/18 17:30 Doctor's Discharge - Discharge Referrals: FAZAL BROWN MD [Primary Care Provider] - Follow up as needed
[2018-10-21] MEDS ORDERED: TETRACAINE HCL 0.5% OPH SOLN 4 ML OD ONE (18:15)
[2018-10-21] MEDS ORDERED: POLYMYXIN B SULFATE/TMP OPH SOLN (10 ML/ER DISP) OS PRN (19:41)
--- NOTE | 2018-10-21 19:43 | ER Document Report ---
ED General - General Chief Complaint: Eye Pain Stated Complaint: EYE PAIN Time Seen by Provider: 10/21/18 17:37 Primary Care Provider: FAZAL BROWN MD [ASSOCIATE] - Follow up as needed Mode of Arrival: Medic Notes: Patient is a 73-year-old female who presents with left eye pain. Has a history of cataracts to the left eye. Patient states that she was in the shower when she felt like something cut her left eye. She states that since that time she has had a severe, burning, stinging pain to the left eye. Nothing seems to improve or worsen the pain. No history of similar injuries in the past. Denies any change in visual acuity to the eye. No drainage from the eye. Denies any known trauma to the eye. Has not seen her doctor regarding today's concerns. TRAVEL OUTSIDE OF THE [place] IN LAST 30 DAYS: No - Related Data Allergies/Adverse Reactions: ampicillin [Ampicillin] Allergy (Severe, Verified 09/07/11 12:56) Facial swelling muscle relaxer Adverse Reaction (Uncoded 04/07/15 20:44) Past Medical History - General Information source: Patient - Social History Smoking Status: Never Smoker Chew tobacco use (# tins/day): No Frequency of alcohol use: None Drug Abuse: None Lives with: Family Family History: DM Patient has suicidal ideation: No Patient has homicidal ideation: No - Past Medical History Cardiac Medical History: Reports: Hx Coronary Artery Disease, Hx Hypertension - LISINOPRIL AND LOPRESSOR Denies: Hx Heart Attack - STENTS [id number], [place] Pulmonary Medical History: Reports: Hx Asthma - OCCUPATIONAL ASTHMA, INDUCED BY CHEMICALS PER PT Neurological Medical History: Denies: Hx Cerebrovascular Accident, Hx Seizures Endocrine Medical History: Denies: Hx Diabetes Mellitus Type 1, Hx Diabetes Mellitus Type 2 Renal/ Medical History: Denies: Hx Peritoneal Dialysis GI Medical History: Denies: Hx Hepatitis, Hx Hiatal Hernia, Hx Ulcer Infectious Medical History: Denies: Hx Hepatitis Past Surgical History: Reports: Hx Cardiac Surgery - stent x 2, thyroidectomy, Hx Thyroid Surgery. Denies: Hx Hysterectomy, Hx Mastectomy, Hx Open Heart Surgery, Hx Pacemaker - Immunizations Hx Diphtheria, Pertussis, Tetanus Vaccination: Yes Hx Pneumococcal Vaccination: 06/04/08 Review of Systems - Review of Systems Notes: Constitutional: Negative for fever. HENT: Negative for sore throat. Eyes: Positive for left eye pain Cardiovascular: Negative for chest pain. Respiratory: Negative for shortness of breath. Gastrointestinal: Negative for abdominal pain, vomiting or diarrhea. Genitourinary: Negative for dysuria. Musculoskeletal: Negative for back pain. Skin: Negative for rash. Neurological: Negative for headaches, weakness or numbness. 10 point ROS negative except as marked above and in HPI. Physical Exam - Vital signs Vitals: Temp Pulse Resp BP Pulse Ox 98.4 F 74 16 165/84 H 100 10/21/18 17:30 10/21/18 17:30 10/21/18 17:30 10/21/18 17:30 10/21/18 17:30 Interpretation: Hypertensive Notes: PHYSICAL EXAMINATION: GENERAL: Well-appearing, well-nourished and in no acute distress. HEAD: Atraumatic, normocephalic. EYES: Pupils equal round and reactive to light, extraocular movements intact, sclera anicteric, conjunctiva are normal. There is a corneal abrasion over the left central eye on fluorescein staining. Ocular pressure 23 on left. ENT: nares patent, oropharynx clear without exudates. Moist mucous membranes. NECK: Normal range of motion, supple without lymphadenopathy LUNGS: Breath sounds clear to auscultation bilaterally and equal. No wheezes rales or rhonchi. HEART: Regular rate and rhythm without murmurs ABDOMEN: Soft, nontender, normoactive bowel sounds. No guarding, no rebound. No masses appreciated. EXTREMITIES: Normal range of motion, no pitting or edema. No cyanosis. NEUROLOGICAL: No focal neurological deficits. Moves all extremities spontaneously and on command. PSYCH: Normal mood, normal affect. SKIN: Warm, Dry, normal turgor, no rashes or lesions noted. - HEENT Visual acuity- Right eye: 20/50 Visual acuity- Left eye: 20/200 Visual acuity- Both eyes: 20/50 Corrective lenses worn: No Course - Re-evaluation Re-evalutation: 10/21/18 19:41 Patient presents with a corneal abrasion to her left eye determined under fluorescein staining. Ocular pressure 23 on 2 separate checks to the left eye. Extraocular motions are intact. Eyelids flipped without any evidence of a retained foreign body. It appears that the patient likely scratched her eye while showering as she states that her hand passed across her eyes and then she had a severe onset of pain. She does have cataracts this I have baseline. She has been started on Polytrim drops for prophylaxis and advised to follow-up with ophthalmology within the next 24 to 48 hours. At this time will discharge with return precautions and follow-up recommendations. Verbal discharge instructions given a the bedside and opportunity for questions given. Medication warnings reviewed. Patient is in agreement with this plan and has verbalized understanding of return precautions and the need for eye care follow-up in the next 24-72 hours. - Vital Signs Vital signs: Temp Pulse Resp BP Pulse Ox 98.2 F 82 16 158/80 H 100 10/21/18 20:26 10/21/18 20:26 10/21/18 20:26 10/21/18 20:26 10/21/18 20:26 Discharge - Discharge Clinical Impression: Left eye pain Left corneal abrasion Qualifiers: Encounter type: initial encounter Qualified Code(s): S05.02XA - Injury of conjunctiva and corneal abrasion without foreign body, left eye, initial encounter Condition: Good Disposition: HOME, SELF-CARE Additional Instructions: You have a corneal abrasion. This should improve in the next several days. You should apply the eye drops to the affected eye 3 times daily. Follow-up with your eye doctor at your earliest ability. Return if you have decreased vision, worsening pain, increased drainage from the eye, you notice redness or puffiness around the eye, you develop a fever greater than 101F, or you have any other symptoms that are concerning to you. Referrals: FAZAL BROWN MD [ASSOCIATE] - Follow up as needed
[2018-10-21 20:32] VITALS: BP 158/80
== END 2018-10-21 20:30 | disposition home or self-care (01) ==
LOC: ER 17:13
DX: S05.02XA Injury of conjunctiva and corneal abrasion without foreign body, left eye, initial encounter (principal); H57.12 Ocular pain, left eye; X58.XXXA Exposure to other specified factors, initial encounter; Y93.E1 Activity, personal bathing and showering; Y92.002 Bathroom of unspecified non-institutional (private) residence as the place of occurrence of the external cause; H26.9 Unspecified cataract; I25.10 Atherosclerotic heart disease of native coronary artery without angina pectoris; I10 Essential (primary) hypertension; Z79.899 Other long term (current) drug therapy; J45.909 Unspecified asthma, uncomplicated
CPT/HCPCS: 99283; J3490 ×2

== ENCOUNTER → 2018-11-05 | Outpatient (CLI) | payer MEDICARE, OTHER ==
[2018-11-05 10:38] LABS: ABSOLUTE LYMPHOCYTES (AUTO) 0.8 10^3/uL (0.5-4.7); ABSOLUTE MONOCYTES (AUTO) 0.3 10^3/uL (0.1-1.4); ABSOLUTE NEUT (AUTO) 3.5 10^3/uL (1.7-8.2); BASOPHILS % (AUTO) 0.6 % (0-2); EOSINOPHILS % (AUTO) 0.9 % (0-6); HEMATOCRIT 34.1 % (36.0-47.0); HEMOGLOBIN 11.5 g/dL (12.0-15.5); LYMPHOCYTES % (AUTO) 16.6 % (13-45); MEAN CORPUSCULAR HEMOGLOBIN 30.9 pg (27.0-33.4); MEAN CORPUSCULAR HGB CONC 33.7 g/dL (32.0-36.0); MEAN CORPUSCULAR VOLUME 92 fl (80-97); MONOCYTES % (AUTO) 5.9 % (3-13); PLATELET COUNT 188 10^3/uL (150-450); RED BLOOD COUNT 3.71 10^6/uL (3.72-5.28); RED CELL DISTRIBUTION WIDTH 15.4 % (11.5-14.0); TOTAL CELLS COUNTED % (AUTO) 100 %; WHITE BLOOD COUNT 4.7 10^3/uL (4.0-10.5)
[2018-11-05 11:09] LABS: ALANINE AMINOTRANSFERASE 17 U/L (9-52); ALBUMIN 3.9 g/dL (3.5-5.0); ALKALINE PHOSPHATASE 93 U/L (38-126); ASPARTATE AMINO TRANSFERASE 21 U/L (14-36); BILIRUBIN,DIRECT 0.3 mg/dL (0.0-0.4); BILIRUBIN,TOTAL 0.5 mg/dL (0.2-1.3); TOTAL PROTEIN 6.9 g/dL (6.3-8.2)
== END ==
LOC: OD 09:37
PROVIDERS: ATTEND Ophthalmology
DX: H30.93 Unspecified chorioretinal inflammation, bilateral (principal); H18.232 Secondary corneal edema, left eye
CPT/HCPCS: 36415; 80076; 85025

== ENCOUNTER → 2019-02-18 | Outpatient (CLI) | payer MEDICARE, OTHER ==
[2019-02-18 13:19] LABS: ABSOLUTE EOSINOPHILS # (AUTO) 0.1 10^3/uL (0.0-0.6); ABSOLUTE MONOCYTES (AUTO) 0.3 10^3/uL (0.1-1.4); ABSOLUTE NEUT (AUTO) 2.4 10^3/uL (1.7-8.2); BASOPHILS % (AUTO) 0.8 % (0-2); EOSINOPHILS % (AUTO) 1.7 % (0-6); HEMATOCRIT 30.3 % (36.0-47.0); HEMOGLOBIN 10.1 g/dL (12.0-15.5); MEAN CORPUSCULAR HEMOGLOBIN 31.3 pg (27.0-33.4); MEAN CORPUSCULAR HGB CONC 33.5 g/dL (32.0-36.0); MEAN CORPUSCULAR VOLUME 93 fl (80-97); MONOCYTES % (AUTO) 7.2 % (3-13); PLATELET COUNT 155 10^3/uL (150-450); RED BLOOD COUNT 3.24 10^6/uL (3.72-5.28); RED CELL DISTRIBUTION WIDTH 15.6 % (11.5-14.0); SEGMENTED NEUTROPHILS % (AUTO) 63.3 % (42-78); TOTAL CELLS COUNTED % (AUTO) 100 %; WHITE BLOOD COUNT 3.7 10^3/uL (4.0-10.5)
[2019-02-18 13:42] LABS: ALBUMIN 3.6 g/dL (3.5-5.0); ALKALINE PHOSPHATASE 85 U/L (38-126); ASPARTATE AMINO TRANSFERASE 25 U/L (14-36); BILIRUBIN,DIRECT 0.2 mg/dL (0.0-0.4); BILIRUBIN,TOTAL 0.5 mg/dL (0.2-1.3); TOTAL PROTEIN 6.5 g/dL (6.3-8.2)
== END ==
LOC: OD 12:48
PROVIDERS: ATTEND Ophthalmology
DX: H30.93 Unspecified chorioretinal inflammation, bilateral (principal)
CPT/HCPCS: 36415; 80076; 85025

== ENCOUNTER → 2019-04-10 | Outpatient (CLI) | payer MEDICARE, OTHER ==
[2019-04-10 14:37] LABS: ABSOLUTE LYMPHOCYTES (AUTO) 1.2 10^3/uL (0.5-4.7); ABSOLUTE MONOCYTES (AUTO) 0.4 10^3/uL (0.1-1.4); ABSOLUTE NEUT (AUTO) 3.4 10^3/uL (1.7-8.2); BASOPHILS % (AUTO) 0.4 % (0-2); EOSINOPHILS % (AUTO) 0.9 % (0-6); HEMATOCRIT 34.6 % (36.0-47.0); HEMOGLOBIN 11.6 g/dL (12.0-15.5); LYMPHOCYTES % (AUTO) 24.3 % (13-45); MEAN CORPUSCULAR HEMOGLOBIN 31.5 pg (27.0-33.4); MEAN CORPUSCULAR HGB CONC 33.5 g/dL (32.0-36.0); MEAN CORPUSCULAR VOLUME 94 fl (80-97); MONOCYTES % (AUTO) 7.1 % (3-13); PLATELET COUNT 165 10^3/uL (150-450); RED BLOOD COUNT 3.68 10^6/uL (3.72-5.28); RED CELL DISTRIBUTION WIDTH 15.4 % (11.5-14.0); SEGMENTED NEUTROPHILS % (AUTO) 67.3 % (42-78); TOTAL CELLS COUNTED % (AUTO) 100 %
[2019-04-10 15:04] LABS: ALKALINE PHOSPHATASE 64 U/L (38-126); ASPARTATE AMINO TRANSFERASE 19 U/L (14-36); BILIRUBIN,DIRECT 0.2 mg/dL (0.0-0.4); BILIRUBIN,TOTAL 0.7 mg/dL (0.2-1.3)
== END ==
LOC: OD 13:18
PROVIDERS: ATTEND Ophthalmology
DX: H30.93 Unspecified chorioretinal inflammation, bilateral (principal); H18.232 Secondary corneal edema, left eye
CPT/HCPCS: 36415; 80076; 85025

== ENCOUNTER → 2019-05-16 | Outpatient (CLI) | payer MEDICARE, OTHER ==
[2019-05-16 15:37] LABS: ABSOLUTE LYMPHOCYTES (AUTO) 0.9 10^3/uL (0.5-4.7); ABSOLUTE MONOCYTES (AUTO) 0.2 10^3/uL (0.1-1.4); ABSOLUTE NEUT (AUTO) 2.1 10^3/uL (1.7-8.2); BASOPHILS % (AUTO) 1.1 % (0-2); EOSINOPHILS % (AUTO) 1.2 % (0-6); HEMATOCRIT 35.1 % (36.0-47.0); HEMOGLOBIN 11.7 g/dL (12.0-15.5); LYMPHOCYTES % (AUTO) 27.5 % (13-45); MEAN CORPUSCULAR HGB CONC 33.2 g/dL (32.0-36.0); MEAN CORPUSCULAR VOLUME 93 fl (80-97); MONOCYTES % (AUTO) 7.3 % (3-13); PLATELET COUNT 137 10^3/uL (150-450); RED BLOOD COUNT 3.76 10^6/uL (3.72-5.28); RED CELL DISTRIBUTION WIDTH 15.3 % (11.5-14.0); SEGMENTED NEUTROPHILS % (AUTO) 62.9 % (42-78); TOTAL CELLS COUNTED % (AUTO) 100 %; WHITE BLOOD COUNT 3.4 10^3/uL (4.0-10.5)
[2019-05-16 16:01] LABS: ALBUMIN 3.8 g/dL (3.5-5.0); ALKALINE PHOSPHATASE 64 U/L (38-126); ANION GAP 11 (5-19); ASPARTATE AMINO TRANSFERASE 21 U/L (14-36); BILIRUBIN,DIRECT 0.1 mg/dL (0.0-0.4); BILIRUBIN,TOTAL 0.3 mg/dL (0.2-1.3); BLOOD UREA NITROGEN 17 mg/dL (7-20); CALCIUM 8.5 mg/dL (8.4-10.2); CARBON DIOXIDE 23 mmol/L (22-30); CHLORIDE 108 mmol/L (98-107); GLUCOSE 86 mg/dL (75-110); IRON(TIBC) 72.5 ug/dL (37-170); POTASSIUM 3.4 mmol/L (3.6-5.0); TOTAL PROTEIN 6.9 g/dL (6.3-8.2)
[2019-05-16 17:06] LABS: FOLATE 7.33 ng/mL (>2.76)
[2019-05-16 17:08] LABS: CHLAM PCR NOT DETECTED (NOT DETECT)
[2019-05-18 07:37] LABS: HEPATITS B SURFACE ANTIGEN Negative (Negative)
[2019-05-19 07:20] LABS: HEPATITIS C VIRUS ANTIBODY <0.1 s/co ratio (0.0-0.9)
== END ==
LOC: OD 13:49
PROVIDERS: ATTEND Family Medicine
DX: Z00.01 Encounter for general adult medical examination with abnormal findings (principal); R53.81 Other malaise; Z11.59 Encounter for screening for other viral diseases; R63.4 Abnormal weight loss; Z13.6 Encounter for screening for cardiovascular disorders
CPT/HCPCS: 36415; 80053; 80074; 82607; 82746; 83540; 83550; 83735; 84436; 84443; 84480; 84703; 85025; 86592; 86701; 87491; 87591

== ENCOUNTER → 2019-05-22 | Outpatient (CLI) | payer MEDICARE, OTHER ==
[2019-05-22 10:37] LABS: CHOLESTEROL 214.61 mg/dL (0-200); TRIGLYCERIDES 78 mg/dL (<150)
[2019-05-22 10:48] LABS: DIRECT LDL 129 mg/dL (<100)
== END ==
LOC: OD 09:17
PROVIDERS: ATTEND Family Medicine
DX: Z13.6 Encounter for screening for cardiovascular disorders (principal); R53.81 Other malaise
CPT/HCPCS: 36415; 80061

== ENCOUNTER 2019-06-20 17:35 | Emergency (ER) | payer MEDICARE, OTHER ==
--- NOTE | 2019-06-20 18:56 | ER Document Report ---
ED Medical Screen (RME) - General Chief Complaint: Fall Stated Complaint: FACE INJURY Time Seen by Provider: 06/20/19 18:48 Primary Care Provider: JUSTINE CIFUENTES MD [Primary Care Provider] - Follow up as needed Mode of Arrival: Ambulatory Information source: Patient Notes: 74-year-old female with history of cardiac disease no anticoagulants presents emergency department with reports that she was moving her mattress and the plywood under the mattress came up hit her in the back of the head and also popped her in the mouth. Patient reports she lost a tooth, maybe more, which she has in a container. Has lower lip laceration. Also reports the plywood hit her in the back of the head and she possibly passed out she is not sure. Patient has active bleeding from the mouth. I have greeted and performed a rapid initial assessment of this patient. A comprehensive ED assessment and evaluation of the patient, analysis of test results and completion of the medical decision making process will be conducted by additional ED providers. TRAVEL OUTSIDE OF THE [place] IN LAST 30 DAYS: No - Related Data Allergies/Adverse Reactions: ampicillin [Ampicillin] Allergy (Severe, Verified 09/07/11 12:56) Facial swelling muscle relaxer Adverse Reaction (Uncoded 04/07/15 20:44) Home Medications: brimonidine, dorzolamide, prednisone, vit d, calcium, acyclovir, cellcept Past Medical History - Social History Chew tobacco use (# tins/day): No Frequency of alcohol use: Social Drug Abuse: None - Past Medical History Cardiac Medical History: Reports: Hx Coronary Artery Disease, Hx Hypertension - LISINOPRIL AND LOPRESSOR Denies: Hx Heart Attack - STENTS [id number], Pulmonary Medical History: Reports: Hx Asthma - OCCUPATIONAL ASTHMA, INDUCED BY CHEMICALS PER PT Neurological Medical History: Denies: Hx Cerebrovascular Accident, Hx Seizures Endocrine Medical History: Denies: Hx Diabetes Mellitus Type 1, Hx Diabetes Mellitus Type 2 Renal/ Medical History: Denies: Hx Peritoneal Dialysis GI Medical History: Denies: Hx Hepatitis, Hx Hiatal Hernia, Hx Ulcer Infectious Medical History: Denies: Hx Hepatitis Past Surgical History: Reports: Hx Cardiac Surgery - stent x 2, thyroidectomy, Hx Thyroid Surgery. Denies: Hx Hysterectomy, Hx Mastectomy, Hx Open Heart Surgery, Hx Pacemaker - Immunizations Hx Diphtheria, Pertussis, Tetanus Vaccination: Yes Physical Exam - Vital signs Vitals: Temp Pulse Resp BP Pulse Ox 97.7 F 52 L 18 183/86 H 100 06/20/19 17:39 06/20/19 17:39 06/20/19 17:39 06/20/19 17:39 06/20/19 17:39 Course - Vital Signs Vital signs: Temp Pulse Resp BP Pulse Ox 97.7 F 52 L 18 183/86 H 100 06/20/19 17:39 06/20/19 17:39 06/20/19 17:39 06/20/19 17:39 06/20/19 17:39 Doctor's Discharge - Discharge Referrals: JUSTINE CIFUENTES MD [Primary Care Provider] - Follow up as needed
--- NOTE | 2019-06-20 19:17 | RADIOLOGY REPORT (SQ) ---
EXAM DESCRIPTION: CT HEAD WITHOUT COMPLETED DATE/TIME: 06/20/2019 7:04 pm REASON FOR STUDY: hit with plywood, possible change in loc COMPARISON: None. TECHNIQUE: Axial images acquired through the brain without intravenous contrast. Images reviewed wi th bone, brain and subdural windows. Additional sagittal and coronal reconstructions were generated. Images stored on PACS. All CT scanners at this facility use dose modulation, iterative reconstruction, and/or weight based d osing when appropriate to reduce radiation dose to as low as reasonably achievable (ALARA). [facility]: Dose Right [facility]: CareDose [facility]: Dose Right [facility]: Teradose 4D [facility]: Atox Bio RADIATION DOSE: CT Rad equipment meets quality standard of care and radiation dose reduction techniq ues were employed. CTDIvol: 53.2 mGy. DLP: 991 mGy-cm.mGy. LIMITATIONS: None. FINDINGS: VENTRICLES: Prominent. CEREBRUM: No masses. No hemorrhage. No midline shift. Areas of low density in the white matter mos t likely due to chronic micro-vascular ischemic change. No evidence for acute infarction. CEREBELLUM: No masses. No hemorrhage. No alteration of density. No evidence for acute infarction. EXTRAAXIAL SPACES: Age-related involutional change. No fluid collections. No masses. ORBITS AND GLOBE: No intra- or extraconal masses. Normal contour of globe without masses. CALVARIUM: No fracture. PARANASAL SINUSES: No fluid or mucosal thickening. SOFT TISSUES: No mass or hematoma. OTHER: No other significant finding. IMPRESSION: CHRONIC CHANGES OF ATROPHY AND MICROVASCULAR ISCHEMIA. NO ACUTE PROCESS. EVIDENCE OF ACUTE STROKE: NO. TECHNICAL DOCUMENTATION: JOB ID: [id number] Quality ID # [id number]: Final reports with documentation of one or more dose reduction techniques (e.g., Au tomated exposure control, adjustment of the mA and/or kV according to patient size, use of iterative reconstruction technique) 2010 [employer]- All Rights Reserved Reading location - IP/workstation name: [email or web address]
--- NOTE | 2019-06-20 19:25 | RADIOLOGY REPORT (SQ) ---
EXAM DESCRIPTION: FACIAL BONES COMPLETED DATE/TIME: 06/20/2019 7:11 pm REASON FOR STUDY: hit in mouth with plywood, lost tooth bleeding COMPARISON: None. NUMBER OF VIEWS: Three view. TECHNIQUE: Images of the facial bones acquired. LIMITATIONS: None. FINDINGS: ORBITS: No fracture. No foreign body. SINUSES: No mucosal thickening. No air fluid levels. FACIAL BONES: On the lateral view there is lucency in the alveolar ridge of the mandible anteriorly. OTHER: No other significant finding. IMPRESSION: Possible fracture of the alveolar ridge of the mandible anteriorly. TECHNICAL DOCUMENTATION: JOB ID: [id number] [employer]- All Rights Reserved Reading location - IP/workstation name: [email or web address]
--- NOTE | 2019-06-20 21:40 | ER Document Report ---
ED General - General Chief Complaint: Fall Stated Complaint: FACE INJURY Time Seen by Provider: 06/20/19 18:48 Primary Care Provider: JUSTINE CIFUENTES MD [Primary Care Provider] - Follow up as needed Mode of Arrival: Ambulatory Notes: 74-year-old female who was attempting to lift part of a bed when it slipped and it hit her on the back and threw her face first into the headboard/solid wood frame. Admits to injury to her lower lip and loss of a lower tooth. Denies loss of consciousness, neck pain, back pain where the mattress hit her back or any other injury. Able to walk after the incident but did have to have a family member lift the mattress off of her. Denies taking any blood thinners. Able to close her mouth as usual. TRAVEL OUTSIDE OF THE [place] IN LAST 30 DAYS: No - Related Data Allergies/Adverse Reactions: ampicillin [Ampicillin] Allergy (Severe, Verified 09/07/11 12:56) Facial swelling muscle relaxer Adverse Reaction (Uncoded 04/07/15 20:44) Home Medications: brimonidine, dorzolamide, prednisone, vit d, calcium, acyclovir, cellcept Past Medical History - General Information source: Patient - Social History Smoking Status: Never Smoker Chew tobacco use (# tins/day): No Frequency of alcohol use: Social - Glass of wine every evening. Drug Abuse: None Family History: DM Patient has suicidal ideation: No Patient has homicidal ideation: No - Past Medical History Cardiac Medical History: Reports: Hx Coronary Artery Disease, Hx Hypertension - LISINOPRIL AND LOPRESSOR Denies: Hx Heart Attack - STENTS [id number], Pulmonary Medical History: Reports: Hx Asthma - OCCUPATIONAL ASTHMA, INDUCED BY CHEMICALS PER PT Neurological Medical History: Denies: Hx Cerebrovascular Accident, Hx Seizures Endocrine Medical History: Denies: Hx Diabetes Mellitus Type 1, Hx Diabetes Mellitus Type 2 Renal/ Medical History: Denies: Hx Peritoneal Dialysis GI Medical History: Denies: Hx Hepatitis, Hx Hiatal Hernia, Hx Ulcer Infectious Medical History: Denies: Hx Hepatitis Past Surgical History: Reports: Hx Cardiac Surgery - stent x 2, thyroidectomy, Hx Thyroid Surgery. Denies: Hx Hysterectomy, Hx Mastectomy, Hx Open Heart Surgery, Hx Pacemaker - Immunizations Hx Diphtheria, Pertussis, Tetanus Vaccination: Yes Hx Pneumococcal Vaccination: 06/04/08 Review of Systems - Review of Systems Constitutional: No symptoms reported EENT: See HPI - Missing tooth, bleeding lower lip. Cardiovascular: No symptoms reported Skin: See HPI - Laceration to the lower lip. -: Yes All other systems reviewed and negative Physical Exam - Vital signs Vitals: Temp Pulse Resp BP Pulse Ox 97.7 F 52 L 18 183/86 H 100 06/20/19 17:39 06/20/19 17:39 06/20/19 17:39 06/20/19 17:39 06/20/19 17:39 Interpretation: Hypertensive - Notes Notes: GENERAL: Alert, interacts well. No acute distress. HEAD: Lower lip laceration, no evidence of trauma anywhere else on the head. EYES: Pupils equal, round and reactive to light, extraocular movements intact. ENT: Oral mucosa moist, tongue midline. Nares patent, no nasal septal hematoma, TMs intact. Tooth #24 is missing, tooth #8 has a small chip missing from it, slightly loose as is tooth #9. There is bruising along the alveolar ridge between tooth #23 and where tooth #24 should have been. Able to open and close mouth without difficulty. Lacerations to the inside of the lower lip one is 2 cm long, vertically oriented, non-gaping and just to the left of midline, the second 1 is horizontally oriented, slightly more gaping but does not go through and through, 5 mm. There is a horizontal laceration noted to the lip as well just posterior to the vermilion border that is not on the mucosal surface, approximately 5 mm, non-gaping, 2 other lacerations are also horizontally oriented and noted to the outside of the lip just above the chin again 5 mm and 6 mm respectively. NECK: Full range of motion, supple, trachea midline. BACK: No bruising, no step-offs, no deformities, no midline bony tenderness to palpation. LUNGS: Clear to auscultation bilaterally, no wheezes, rales or rhonchi, no respiratory distress. HEART: Regular rate and rhythm, no murmurs, gallops, rubs. ABDOMEN: Soft, nontender, nondistended, bowel sounds present in all 4 quadrants. EXTREMITIES: Moves all 4 extremities spontaneously, no edema, radial and dorsalis pedis pulses 2/4 bilaterally. No cyanosis. NEUROLOGICAL: Alert and oriented x3, normal speech, cranial nerves II through XII grossly intact, biceps and patellar DTRs 2+ bilaterally. Able to stand, able to walk, able to pivot without difficulty. PSYCH: Normal mood, normal affect. SKIN: Warm, Dry, lower lip is swollen, lacerations as above. Course - Re-evaluation Re-evalutation: 06/20/19 23:04 Facial Bones X-Ray 06/20/19 18:52 IMPRESSION: Possible fracture of the alveolar ridge of the mandible anteriorly. Head CT 06/20/19 18:52 IMPRESSION: CHRONIC CHANGES OF ATROPHY AND MICROVASCULAR ISCHEMIA. NO ACUTE PROCESS. EVIDENCE OF ACUTE STROKE: NO. No indication for imaging of the neck or the back as there is no tenderness palpation, no neurologic findings and no signs of trauma. Discussed case with NELIDA Gomez who is on-call for oral surgery. 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 Confirms that there is nothing acute that needs to be done for an alveolar rib fracture this evening. She states that they would be willing to see her in follow-up in the clinic. Patient is provided with their contact as an outpatient. Agrees to trying to reinsert the tooth however as it came out this easily she suspects that there is some dental decay that contributed to it coming out. I did repair the multiple through and through lacerations to the lip externally, left them open internally so as to not trap bacteria. I was unable to re- patient is counseled on saline rinses and taking antibiotics in the form of clindamycin as she is allergic to penicillin. Discharged home. Insert the avulsed tooth. - Vital Signs Vital signs: Temp Pulse Resp BP Pulse Ox 98.2 F 51 L 14 166/67 H 100 06/20/19 20:51 06/20/19 20:51 06/20/19 20:51 06/20/19 20:51 06/20/19 20:51 Procedures - Laceration/Wound Repair Lower lip superior Wound length (cm): 0.6 Wound's Depth, Shape: Into muscle, Linear Laceration pre-procedure: Sterile PPE donned, Sterile drapes applied, Shur-Clens applied Anesthetic type: 0.5% Bupivacaine - Mixture of lidocaine and bupivacaine Volume Anesthetic (mLs): 3 Wound explored: Clean, No foreign body removed Wound Debrided: Minimal Wound Repaired With: Sutures Suture Size/Type: 5:0, Ethilon Number of Sutures: 2 Layer Closure?: No Post-procedure NV exam normal: Yes Complications: No Lower lip midline Wound length (cm): 0.7 Wound's Depth, Shape: Into muscle, Linear. No: Flap Laceration pre-procedure: Sterile PPE donned, Sterile drapes applied, Shur-Clens applied Anesthetic type: 1% Lidocaine - combination of lidocaine and bupivacaine Volume Anesthetic (mLs): 3 Wound explored: Clean Wound Debrided: Minimal Wound Repaired With: Sutures Suture Size/Type: 5:0, Ethilon Number of Sutures: 2 Layer Closure?: No Post-procedure NV exam normal: Yes Complications: No Lower lip left Wound length (cm): 0.8 Wound's Depth, Shape: Into muscle, Linear, Contused tissue Laceration pre-procedure: Sterile PPE donned, Sterile drapes applied, Shur-Clens applied Anesthetic type: 1% Lidocaine - Combination of lidocaine and bupivacaine Volume Anesthetic (mLs): 4 - Mandibular block Wound explored: Clean Wound Debrided: Minimal Wound Repaired With: Sutures Suture Size/Type: 5:0, Ethilon Number of Sutures: 2 Layer Closure?: No Post-procedure NV exam normal: Yes Complications: No Discharge - Discharge Clinical Impression: Closed fracture alveolar ridge mandible Avulsion of tooth due to trauma Qualifiers: Encounter type: initial encounter Qualified Code(s): S03.2XXA - Dislocation of tooth, initial encounter Laceration of lower lip Qualifiers: Encounter type: initial encounter Qualified Code(s): S01.511A - Laceration without foreign body of lip, initial encounter Condition: Stable Disposition: HOME, SELF-CARE Additional Instructions: Avulsed Tooth Permanent teeth that have been avulsed or knocked out of their socket in the jaw might be saved if re-inserted in the socket as soon as possible. Salvage of the tooth depends on how long the tooth was out of the socket, how badly the blood supply into the socket was damaged, whether the tooth itself was damaged, comination of the socket with bacteria or subsequent infection, and other factors. Following re-insertion, the tooth will need to be stabilized by an oral surgeon or other dental specialist using wires or other devises. If the tooth is not saved, an eventual root canal procedure may be necessary. I was unable to reinsert your tooth. You do have an alveolar ridge fracture of your mandible. Please use a soft diet without anything sharp for the next several days. You also have lacerations to the inside and outside of your lip. I sewed them outside for better cosmetic appearance. I left them open inside to decrease the risk of infection. Please take the clindamycin 450 mg 3 times a day until it is gone. Please rinse your mouth with a salt solution that is approximately as salty as your tears. You may either buy the salt solution [id number] or simply makes it to taste. Rinse it after every time you eat. Please use ibuprofen (Motrin or Advil) 600-800 mg every 8 hours as needed for pain. You may also use acetaminophen (Tylenol) 1000 mg every 4-6 hours as needed for pain. Please be aware that many medications contain acetaminophen, do not exceed a total of 1000 mg of acetaminophen every 6 hours. You should have your sutures removed in 5 to 7 days. Please follow-up with oral surgery as an outpatient. Prescriptions: Clindamycin HCl [Cleocin 150 mg Capsule] 450 mg PO Q8H #49 capsule Referrals: JUSTINE CIFUENTES MD [Primary Care Provider] - Follow up as needed JAVI GOMEZ DA [DENTAL FILM PROCESS OPERATOR] - Follow up as needed ASIM SOTOMAYOR DDS [ACTIVE STAFF] - Follow up in 3-5 days
[2019-06-20] MEDS ORDERED: LIDOCAINE 1% INJ-PF (10 MG/ML) 30 ML SDV INJ ONE (21:41)
[2019-06-20] MEDS ORDERED: BUPIVACAINE HCL 0.5 % INJ/PF 30 ML SDV INJ ONE (21:42)
[2019-06-20] MEDS ORDERED: DIPH/PERTUSS(ACELL)/TETANUS VAC/PF 0.5 ML SYR (>=10YO) IM ONE (21:46)
[2019-06-20] MEDS ORDERED: IBUPROFEN 600 MG TABLET PO ONE (22:59)
[2019-06-20] MEDS ORDERED: CLINDAMYCIN HCL 150 MG CAPSULE PO ONE ×2 (23:00)
[2019-06-20 23:49] VITALS: BP 177/80
== END 2019-06-20 23:49 | disposition home or self-care (01) ==
LOC: ER 17:35
PROC: 0CQ1XZZ Repair Lower Lip, External Approach (ICD-10-PCS; principal; 2019-06-20)
DX: S02.609A Fracture of mandible, unspecified, initial encounter for closed fracture (principal); S03.2XXA Dislocation of tooth, initial encounter; S01.511A Laceration without foreign body of lip, initial encounter; W22.03XA Walked into furniture, initial encounter; Z79.899 Other long term (current) drug therapy; Z88.8 Allergy status to other drugs, medicaments and biological substances; I25.10 Atherosclerotic heart disease of native coronary artery without angina pectoris; I10 Essential (primary) hypertension; J45.909 Unspecified asthma, uncomplicated
CPT/HCPCS: 99284; 90471; 70150; 70450; 90715; 12011; J3490 ×2; A9270 ×2